=== PATIENT | male | born 1975 | race African-American/Black ===

== ENCOUNTER 2017-12-08 10:25 | Inpatient (IN) | payer OTHER ==
[~2017-12-08] VITALS: Ht 190.5 cm; Wt 108.9 kg
--- NOTE | ~2017-12-08 | S ---
[facility] [place] [address] SURGICAL PATH RPT PROCEDURE Name: MICHELLE MCLEAN Room #: 410-P DIS IN M.R.#: [id number] Admission: 12/08/17 Date of : 79 Discharge: 12/09/17 Report #: [id number] Path Case #: [id number] PATHOLOGY REPORT COLLECTION DATE: 12/09/2017 RECEIVED DATE: 12/09/2017 SUBMITTING PHYS: Dr. Davis Haas OTHER PHYS: Josh Perez M.D. SPECIMEN(S) RECEIVED: A.R sided colon bx B.L sided colon bx C.Rectal polyp * * * * * * * * * * * * FINAL DIAGNOSIS: A. Large intestinal mucosa, right-sided colon rule out chronic colitis, endoscopic biopsy: - Mild focal active colitis (please see comment). - Negative for dysplasia or malignancy. B. Large intestinal mucosa, left-sided colon rule out chronic colitis, endoscopic biopsy: - Mild focal active colitis (please see comment). - Negative for dysplasia or malignancy. C. Polyp, rectal poly, endoscopic biopsy: - Compatible with a hyperplastic polyp. - Negative for dysplasia or malignancy. (IUV:leonidas; 12/12/2017) COMMENT: Examination of the "right side colon" and "left side colon" shows scattered rare focus of cryptitis in a background of increased cellularity within lamina propria comprised of lymphocytes as well as eosinophils. Crypt architectural abnormalities are not identified. There are no granulomata, viral inclusions or parasitic organisms present. Ulcerations are not identified as well. Increased subepithelial collagen or intraepithelial lymphocytosis are not identified. Overall findings are nonspecific, and may be due to bowel preparation, suggestive of a resolving episode of colitis, mild focal active colitis due to diverticulitis or medication-induced colitis. Findings to suggest chronic active colitis are not identified. Please correlate clinically and follow-up as indicated. (IUV:leonidas; 12/12/2017) PATHOLOGIST: Valorie Calles M.D. REPORT ELECTRONICALLY SIGNED BY: Valorie Calles M.D. DATE/TIME: 12/12/2017 14:48 [address] [place] [address] SURGICAL PATH RPT PROCEDURE Name: MICHELLE MCLEAN Room #: 410-P [facility] IN M.R.#: [id number] Admission: 12/08/17 Date of : 79 Discharge: 12/09/17 Report #: [id number] Path Case #: [id number] * * * * * * * * * * * * GROSS PATHOLOGY: A. Received in formalin labeled "Michelle Mclean, right sided colonic BX, rule out chronic colitis," are 4 segments of rodriguez soft tissue measuring 1.6 x 0.6 x 0.3 cm in aggregate dimensions and ranging from 0.3 to 0.8 cm in maximum dimension. The specimen is submitted entirely in cassette A1. B. Received in formalin labeled "Michelle Mclean, left sided colon BX, rule out chronic colitis," are 4 segments of rodriguez soft tissue measuring 0.8 x 0.9 x 0.3 cm in aggregate dimensions and ranging from 0.3 to 0.5 cm in maximum dimension. The specimen is submitted entirely in cassette B1. C. Received in formalin labeled "Michelle Mclean, rectal polyp," is a segment of rodriguez soft tissue measuring 0.2 cm in maximum dimension. The specimen is submitted entirely in cassette C1. (TSD; 12/09/2017) CLINICAL HISTORY: Pre-OP DX: Lower GI bleed Post OP DX: Diverticulosis, colitis, rectal polyp, hemorrhoid INITIAL CPT CODE(S): A; 93884 B; 27636 C; 69221 Professional services performed by [facility] at [facility] [address], [place] [address] Technical services performed by [facility] at [address] [place] [address], [address], [place] [address]. [facility] [address] [place] [address] PHONE: [phone] DIRECTOR: Yandel De Leon M.D. * * * END OF REPORT * * *
[2017-12-08 10:55] VITALS: BP 185/114
[2017-12-08] MEDS ORDERED: LISINOPRIL10 MG PO (11:00)
[2017-12-08] MEDS ORDERED: VISTARIL 25 MG25 M1 PO (11:00)
[2017-12-08] MEDS ORDERED: RISPERDAL2 MG PO (11:00)
[2017-12-08] MEDS ORDERED: HYDROCHLOROTH12.5 M1 PO (11:00)
[2017-12-08] MEDS ORDERED: SERTRALINE HCL50 MG PO (11:00)
[2017-12-08] MEDS ORDERED: AMLODIPINE BESY10 MG PO (11:01)
[2017-12-08 11:37] LABS: ABSOLUTE NEUTROPHILS 4.8 thou/uL (1.4-8.2); BASOPHILS 0.4 % (0.0-2.0); EOSINOPHILS 0.9 % (0.0-3.0); HEMOGLOBIN 17.5 gm/dL (14.0-18.0); MCH 28.8 pg (26.0-34.0); MCHC 33.6 g/dL (28.0-37.0); MCV 85.5 fL (80.0-100.0); PLATELET COUNT 301 thou/uL (150-400); POLYS 71.7 % (36.0-66.0); RBC 6.08 mil/uL (4.50-6.00); RDW 13.9 % (10.5-14.5); WBC 6.7 thou/uL (4.0-11.0)
[2017-12-08 11:49] LABS: APTT 26.8 Seconds (24.5-32.8); CALCIUM 8.9 mg/dL (8.5-10.1); CREATININE 1.3 mg/dL (0.7-1.3); POTASSIUM 3.6 mmol/L (3.5-5.1); PROTIME 10.5 Seconds (9.3-11.4)
[2017-12-08 11:54] LABS: ALBUMIN 3.9 g/dL (3.4-5.0); DIRECT BILIRUBIN 0.1 mg/dL (<0.1-0.3); TOTAL BILIRUBIN 0.4 mg/dL (<0.1-1.0); TOTAL PROTEIN 8.3 g/dL (6.4-8.2)
[2017-12-08 18:37] VITALS: BP 179/118
[2017-12-08 20:00] VITALS: BP 186/111
[2017-12-09] VITALS: BP 191/115
[2017-12-09 04:00] VITALS: BP 159/108
[2017-12-09 06:11] LABS: HEMATOCRIT 51.8 % (42.0-52.0); HEMOGLOBIN 17.2 gm/dL (14.0-18.0); MCH 28.4 pg (26.0-34.0); MCHC 33.2 g/dL (28.0-37.0); MCV 85.7 fL (80.0-100.0); RBC 6.04 mil/uL (4.50-6.00); RDW 13.8 % (10.5-14.5); WBC 5.5 thou/uL (4.0-11.0)
[2017-12-09 07:03] LABS: CALCIUM 9.4 mg/dL (8.5-10.1); CREATININE 1.2 mg/dL (0.7-1.3)
[2017-12-09 07:17] VITALS: BP 177/110
[2017-12-09] MEDS ORDERED: SERTRALINE HCL50 MG PO (16:01)
[2017-12-09] MEDS ORDERED: RISPERDAL2 MG PO (16:01)
[2017-12-09] MEDS ORDERED: HYDROCHLOROTH12.5 M1 PO (16:01)
[2017-12-09] MEDS ORDERED: LISINOPRIL10 MG PO (16:01)
[2017-12-09] MEDS ORDERED: AMLODIPINE BESY10 MG PO (16:01)
[2017-12-09] MEDS ORDERED: VISTARIL 25 MG25 M1 PO (16:01)
[2017-12-09 16:38] VITALS: BP 177/97
[2017-12-09 17:52] VITALS: BP 177/97
== END 2017-12-09 18:43 | disposition home or self-care (01) | DRG 378 ==
LOC: ER 10:25 → EROBS 13:24 → 4N 19:48
PROVIDERS: Emergency Medicine; Hospitalist
DX: K57.91 Diverticulosis of intestine, part unspecified, without perforation or abscess with bleeding (principal); K55.9 Vascular disorder of intestine, unspecified; K92.1 Melena; F17.210 Nicotine dependence, cigarettes, uncomplicated; I10 Essential (primary) hypertension; F12.90 Cannabis use, unspecified, uncomplicated; F32.9 Major depressive disorder, single episode, unspecified; Z90.49 Acquired absence of other specified parts of digestive tract; Z79.899 Other long term (current) drug therapy
CPT/HCPCS: 10091; 62110; 62900